=== PATIENT | male | born 1980 | race Caucasian/White ===

== ENCOUNTER 2021-01-03 15:50 | Inpatient (IN) | payer MEDICAID ==
[~2021-01-03] VITALS: Ht 175.3 cm; Wt 103.7 kg
[2021-01-03] MEDS ORDERED: ONDANSETRON ODT 4 MG PO PRN (16:00)
[2021-01-03] MEDS ORDERED: ACETAMINOPHEN 325 MG TABLET PO PRN (16:00)
[2021-01-03] MEDS ORDERED: BISACODYL 10 MG SUPP PR PRN (16:00)
[2021-01-03] MEDS ORDERED: DOCUSATE 100 MG CAPSULE PO PRN (16:00)
[2021-01-03] MEDS ORDERED: POLYETHYLENE GLYCOL 17 GM PACKET PO PRN (16:00)
[2021-01-03] MEDS ORDERED: QUET400T4 PO (16:27)
[2021-01-03 17:27] VITALS: BP 129/81
[2021-01-03 20:00] VITALS: BP 129/81
[2021-01-03] MEDS ORDERED: PLEASE ENTER HEIGHT AND WEIGHT MC SCH (20:00)
[2021-01-03] MEDS: QUETIAPINE 100MG TABLET PO SCH (21:00)
[2021-01-04] MEDS ORDERED: CETI10TA18 PO (01:43)
[2021-01-04] MEDS ORDERED: DOXE100C PO (01:43)
[2021-01-04] MEDS ORDERED: SERT50TA28 PO (01:43)
[2021-01-04] MEDS ORDERED: HYDR25CA94 PO (01:43)
[2021-01-04 06:42] LABS: BASOPHILS % (AUTO) 1 % (0-1); EOSINOPHILS % (AUTO) 4 % (1-7); LYMPHOCYTES % (AUTO) 16 % (22-44); MD NO; MEAN CORPUSCULAR HEMOGLOBIN 28.3 pg (27.5-34.5); MEAN CORPUSCULAR HGB CONC 33.8 g/dL (33.2-36.2); MEAN PLATELET VOLUME 7.1 fL (7.4-10.4); MONOCYTES % (AUTO) 10 % (2-9); NEUTROPHILS % (AUTO) 70 % (42-75); PLATELET COUNT 273 x10^3/uL (130-400)
[2021-01-04 06:55] LABS: ALANINE AMINOTRANSFERASE 28 U/L (12-78); ALBUMIN 3.4 g/dL (3.4-5.0); ANION GAP 4 mmol/L (5-15); CALCIUM 8.6 mg/dL (8.5-10.1); CHLORIDE 108 mmol/L (98-107)
[2021-01-04 07:03] LABS: ALKALINE PHOSPHATASE 87 U/L (45-117); BILIRUBIN,TOTAL 0.5 mg/dL (0.2-1.0); CHOL/HDL RATIO 4.5; CHOLESTEROL, TOTAL 184 mg/dL (140-239); FREE T4 (FREE THYROXINE) 0.84 ng/dL (0.76-1.46); HDL CHOL % 22 % (26-37); HDL CHOLESTEROL (DIRECT) 41 mg/dL (40-60); LDL CHOLESTEROL,CALCULATED 126 mg/dL (54-169); LDL/HDL RATIO 3.1 (0.5-3.0); TOTAL PROTEIN 7.1 g/dL (6.4-8.2); TRIGLYCERIDES 83 mg/dL (50-200); VLDL CHOLESTEROL 17 mg/dL (0-25)
[2021-01-04 07:30] VITALS: BP 113/77
[2021-01-04] MEDS: NICOTINE 14MG/24 HR PATCH.TD24 TD SCH (08:58)
[2021-01-04] MEDS: QUETIAPINE 25MG TABLET PO PRN (09:14)
[2021-01-04 19:03] VITALS: BP 119/80
[2021-01-04] MEDS: QUETIAPINE 100MG TABLET PO SCH (20:20)
[2021-01-04] MEDS: HYDROXYZINE PAMOATE 50MG CAP PO PRN (20:20)
[2021-01-05 07:45] VITALS: BP 120/79
[2021-01-05] MEDS: NICOTINE 14MG/24 HR PATCH.TD24 TD SCH (08:40)
[2021-01-05] MEDS: SERTRALINE 50MG TABLET PO SCH (11:42)
[2021-01-05 19:31] VITALS: BP 119/87
[2021-01-05] MEDS: QUETIAPINE 100MG TABLET PO SCH (20:42)
[2021-01-05] MEDS: HYDROXYZINE PAMOATE 50MG CAP PO PRN (21:09)
[2021-01-06 07:20] VITALS: BP 107/75
[2021-01-06] MEDS: NICOTINE 14MG/24 HR PATCH.TD24 TD SCH (08:16)
[2021-01-06] MEDS: QUETIAPINE 25MG TABLET PO PRN (08:16)
[2021-01-06] MEDS: SERTRALINE 50MG TABLET PO SCH (08:16)
[2021-01-06] MEDS: QUETIAPINE 100MG TABLET PO SCH (20:26)
[2021-01-06 20:46] VITALS: BP 115/77
[2021-01-06 22:28] LABS: MICROSCOPIC NOT IND
[2021-01-07 06:29] VITALS: BP 118/84
[2021-01-07] MEDS: SERTRALINE 50MG TABLET PO SCH (09:28)
[2021-01-07] MEDS: QUETIAPINE 25MG TABLET PO PRN (09:28)
[2021-01-07] MEDS: HYDROXYZINE PAMOATE 50MG CAP PO PRN ×2 (09:28→20:53)
[2021-01-07] MEDS: NICOTINE 14MG/24 HR PATCH.TD24 TD SCH (09:30)
[2021-01-07 20:00] VITALS: BP 121/85
[2021-01-07] MEDS: QUETIAPINE 100MG TABLET PO SCH (20:53)
[2021-01-08 07:23] VITALS: BP 116/80
[2021-01-08] MEDS: SERTRALINE 50MG TABLET PO SCH (08:48)
[2021-01-08] MEDS: HYDROXYZINE PAMOATE 50MG CAP PO PRN (08:48)
[2021-01-08] MEDS: NICOTINE 14MG/24 HR PATCH.TD24 TD SCH (08:48)
[2021-01-08] MEDS ORDERED: SERT50TA28 PO (12:56)
[2021-01-08] MEDS ORDERED: QUET100T PO (12:56)
[2021-01-08] MEDS ORDERED: NICO-486 TD (12:56)
[2021-01-08] MEDS ORDERED: QUET25TA7 PO (12:56)
[2021-01-08] MEDS ORDERED: HYDR50CA2 PO (12:56)
== END 2021-01-08 13:20 | disposition home or self-care (01) | DRG 750 ==
LOC: 3E 19:34
PROVIDERS: ADMIT Psychiatry & Neurology Psychosomatic Medicine; ATTEND Psychiatry & Neurology Psychosomatic Medicine
DX: F25.0 Schizoaffective disorder, bipolar type (principal); F15.20 Other stimulant dependence, uncomplicated; R45.851 Suicidal ideations; F16.10 Hallucinogen abuse, uncomplicated; F17.200 Nicotine dependence, unspecified, uncomplicated; F41.9 Anxiety disorder, unspecified; Z79.899 Other long term (current) drug therapy; Z86.16 Personal history of COVID-19
CPT/HCPCS: 36415; 71045; 80053; 80061; 81003; 84439; 84443; 85025; 93005